=== PATIENT | female | born 1990 | race African-American/Black ===

== ENCOUNTER 2020-03-23 11:00 | Emergency (ER) | payer BC ==
[~2020-03-23] VITALS: Ht 162.6 cm; Wt 99.8 kg
[2020-03-23 11:39] LABS: BASOPHILS % (AUTO) 0.7 % (0.0-2.0); EOSINOPHILS # (AUTO) 0.1 K/uL (0.0-0.7); EOSINOPHILS % (AUTO) 1.3 % (0.0-7.0); HEMATOCRIT 34.7 % (31.2-41.9); HEMOGLOBIN 11.6 g/dL (10.9-14.3); LYMPHOCYTES # (AUTO) 2.6 K/uL (20.0-40.0); LYMPHOCYTES % (AUTO) 49.9 % (20.5-51.5); MEAN CORPUSCULAR HGB CONC 34 g/dL (32.3-35.6); MEAN CORPUSCULAR VOLUME 74.6 fL (75.5-95.3); MONOCYTES # (AUTO) 0.3 K/uL (2.0-10.0); MONOCYTES % (AUTO) 6.7 % (0.0-11.0); NEUTROPHILS # (AUTO) 2.1 K/uL (1.8-8.9); NEUTROPHILS % (AUTO) 41.4 % (38.5-71.5); PLATELET COUNT (AUTO) 360 K/uL (179-408); RED BLOOD CELL COUNT(AUTO) 4.65 MIL/uL (3.63-4.92); WHITE BLOOD COUNT (AUTO) 5.1 K/uL (3.8-11.8)
--- NOTE | 2020-03-23 11:46 | NUR ---
Patient discharged to home in stable condition. Written and verbal after care instructions given. Patient verbalizes understanding of instructions. Stressed follow up or return to ER for worsening s/s.
[2020-03-23 11:52] LABS: IRON, SERUM 22 ug/dL (50-175)
[2020-03-23 11:59] LABS: THYROID STIMULATING HORMONE 0.588 mIU/mL (0.358-3.740)
[2020-03-23 12:02] LABS: CHOLESTEROL 176 mg/dL (<200); FERRITIN 12 ng/mL (8-252); HDL CHOLESTEROL 71 mg/dL (40-60); MAGNESIUM 1.7 mg/dL (1.8-2.4); TRIGLYCERIDES 134 MG/DL (30-150)
[2020-03-23 14:49] LABS: EOSINOPHILS % (MANUAL) 1 % (0-8); LYMPHOCYTES % (MANUAL) 54 % (20-40); MONOCYTES % (MANUAL) 4 % (2-10); NEUTROPHILS % (MANUAL) 41 % (42-75)
[2020-03-26 12:12] LABS: CALCITRIOL VIT D,1,25 DIHYDROX 79.8 pg/mL (19.9-79.3)
== END 2020-03-23 11:47 | disposition home or self-care (01) ==
LOC: ER 11:00
DX: Z00.00 Encounter for general adult medical examination without abnormal findings (principal); E11.9 Type 2 diabetes mellitus without complications
CPT/HCPCS: 36415; 70030-TC; 82652; 83550; 83735; 84153; 84443; 85025; 85610; 86140; 86677; 87806; A4663